=== PATIENT | female | born 2000 | race Caucasian/White ===

== ENCOUNTER 2025-08-20 08:21 | Emergency (ER) | payer OTHER ==
[~2025-08-20] VITALS: Ht 165.1 cm; Wt 70.1 kg
[2025-08-20 08:24] VITALS: BP 117/64; TEMP 97.5; O2SAT 97
[2025-08-20] MEDS ORDERED: birth control (08:27)
[2025-08-20 08:58] LABS: APPEARANCE, URINE HAZY (CLEAR); BACTERIA, URINE AUTO 1+ (NEGATIVE); BILIRUBIN, URINE AUTO NEGATIVE (NEGATIVE); BLOOD, URINE BLOOD 1+ (NEGATIVE); GLUCOSE, URINE (UA) AUTO NEGATIVE (NEGATIVE); KETONE, URINE AUTO NEGATIVE (NEGATIVE); LEUKOCYTE ESTERASE, URINE AUTO 2+ (NEGATIVE); MUCUS, URINE SMALL (NEGATIVE); NITRITE, URINE AUTO NEGATIVE (NEGATIVE); PROTEIN, URINE AUTO NEGATIVE (NEGATIVE); RBC, URINE AUTO 3 /HPF (0-3); SPECIFIC GRAVITY URINE AUTO 1.016 (1.002-1.035); SQUAMOUS EPITHELIAL CELL UR AU 3 /HPF (0-6); UROBILINOGEN, URINE AUTO 0.2 mg/dL (0.0-2.0); WBC, URINE AUTO 57 /HPF (0-3)
[2025-08-20] MEDS ORDERED: PYRI1TAB5 PO (11:33)
[2025-08-20] MEDS ORDERED: MACR100C43 PO (11:33)
[2025-08-20] MEDS: PHENAZOPYRIDINE 100 MG TAB PO ONE (11:57)
[2025-08-20] MEDS: NITROFURANTOIN 100 MG CAP PO ONE (11:57)
== END 2025-08-20 12:00 | disposition home or self-care (01) ==
LOC: M ED 08:21
DX: N39.0 Urinary tract infection, site not specified (principal); Z79.2 Long term (current) use of antibiotics; Z79.899 Other long term (current) drug therapy